=== PATIENT | male | born 1995 | race Caucasian/White ===

== ENCOUNTER 2020-04-14 20:30 | Emergency (ER) | payer MEDICAID, OTHER ==
[2020-04-14] MEDS ORDERED: Bacitracin/Neomycin/Polymyxin B Oint 0.9 GM U/D Packet TOP ONE (20:48)
[2020-04-14] MEDS ORDERED: Diphtheria,Pertussis(Acell),Tetanus Vaccine 0.5 ML SDV IM ONE (20:48)
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
[2020-04-14 22:14] VITALS: BP 123/78; PULSE 84
== END 2020-04-14 22:00 | disposition home or self-care (01) ==
LOC: LL.ED 20:30
DX: S81.812A Laceration without foreign body, left lower leg, initial encounter (principal); S91.312A Laceration without foreign body, left foot, initial encounter; Z23 Encounter for immunization; J45.909 Unspecified asthma, uncomplicated; Z71.6 Tobacco abuse counseling; V86.56XA Driver of dirt bike or motor/cross bike injured in nontraffic accident, initial encounter
CPT/HCPCS: 12002; 73620-LT; 90471; 90715; 99283-25; J2001